=== PATIENT | male | born 1995 | race Caucasian/White ===

== ENCOUNTER 2021-09-29 18:28 | Emergency (ER) | payer BC ==
[~2021-09-29] VITALS: Ht 175.3 cm; Wt 77.0 kg
[2021-09-29] MEDS ORDERED: HYDROCODONE/ACETAMINOPHEN 5/325MG TABLET PO ONE (19:45)
[2021-09-29] MEDS ORDERED: BACITRACIN ZINC OINT UDPKT TOP ONE (19:45)
[2021-09-29] MEDS ORDERED: TETANUS, DIPHTHERIA, PERTUSSIS VAC/PF 0.5ML (>10YR OLD) IM ONE (19:45)
[2021-09-29] MEDS ORDERED: IBUP-2029 MT (21:25)
[2021-09-29] MEDS ORDERED: HYDR-4001 MT (21:25)
[2021-09-29 21:56] VITALS: BP 129/68
[2021-10-01] MEDS ORDERED: HYDR-4001 MT (11:51)
== END 2021-09-29 22:02 | disposition home or self-care (01) ==
LOC: ER 18:28
DX: S42.001A Fracture of unspecified part of right clavicle, initial encounter for closed fracture (principal); S01.01XA Laceration without foreign body of scalp, initial encounter; V02.99XA Pedestrian with other conveyance injured in collision with two- or three-wheeled motor vehicle, unspecified whether traffic or nontraffic accident, initial encounter; Y93.89 Activity, other specified; Y92.89 Other specified places as the place of occurrence of the external cause; Y99.8 Other external cause status
CPT/HCPCS: 12001; 73000; 73030; 99284